=== PATIENT | female | born 1955 | race Caucasian/White ===

== ENCOUNTER 2017-06-20 08:49 | Outpatient (CLI) | payer BC | END 2017-06-20 08:50 | LOC: POD 08:49 | PROVIDERS: ATTEND Podiatrist Public Medicine | DX: B35.1 Tinea unguium (principal); M79.674 Pain in right toe(s); M79.675 Pain in left toe(s); L60.0 Ingrowing nail; M77.41 Metatarsalgia, right foot | CPT/HCPCS: 99213 ==